=== PATIENT | male | born 1965 | race Caucasian/White ===

== ENCOUNTER → 2017-07-12 | Outpatient (REF) | payer BC | LOC: M LAB REF 14:59 | PROVIDERS: ATTEND Nurse Practitioner Adult Health | DX: R07.89 Other chest pain (principal) ==

== ENCOUNTER → 2018-03-18 | Outpatient (REF) | payer BC ==
[2018-03-20 08:27] LABS: LDL DIRECT 64 mg/dL (0-99)
== END ==
LOC: M LAB REF 18:32
DX: E78.1 Pure hyperglyceridemia (principal)
CPT/HCPCS: 83721

== ENCOUNTER 2018-05-22 07:56 | Day surgery (SDC) | payer BC ==
[2018-05-22] MEDS: NS 1,000 ML IV (08:07)
[2018-05-22] MEDS ORDERED: PROPOFOL 200 MG/20 ML VIAL As Ordered ×3 (08:29→08:47)
[2018-05-22] MEDS ORDERED: LIDOCAINE 2% INJ 100 MG/5 ML SDV (FOR ANES.) As Ordered (08:30)
== END 2018-05-22 09:27 | disposition home or self-care (01) ==
LOC: M OPP 07:56
DX: Z12.11 Encounter for screening for malignant neoplasm of colon (principal); K64.0 First degree hemorrhoids; K57.30 Diverticulosis of large intestine without perforation or abscess without bleeding; R12 Heartburn; K22.8 Other specified diseases of esophagus; I10 Essential (primary) hypertension; E78.5 Hyperlipidemia, unspecified; K21.9 Gastro-esophageal reflux disease without esophagitis; G47.30 Sleep apnea, unspecified; R06.83 Snoring; F17.210 Nicotine dependence, cigarettes, uncomplicated; Z79.82 Long term (current) use of aspirin; Z79.899 Other long term (current) drug therapy
CPT/HCPCS: G0121

== ENCOUNTER → 2019-04-28 | Outpatient (REF) | payer BC ==
[~2019-04-28] MED LIST: ASPI81TA85 PO; ATEN50TA9 PO; BELV10TA PO; FLOM0.4C39 PO; FLUO40CA PO; LOVA1CAP17 PO; OMEP40CA97 PO; POTA1TAB23 PO; ROSU5TAB5 PO; VITA-176 PO; [UNRECOGNIZED DRUG - CODE] EX
== END ==
LOC: M LAB REF 16:31
PROVIDERS: ATTEND Internal Medicine
DX: E78.1 Pure hyperglyceridemia (principal)

== ENCOUNTER → 2020-12-30 | Outpatient (CLI) | payer BC ==
[~2020-12-30] MED LIST changes: -ASPI81TA85 PO; +ASPI81TA86 PO
--- NOTE | 2020-12-30 10:51 | REP ---
INDICATION: NICOTINE DEPENDENCE COMPARISON: None. TECHNIQUE: Axial noncontrast images from the thoracic inlet to the upper abdomen using low-dose lung screening technique (LDCT). FINDINGS: Bilateral lung brown are relatively well aerated. There is a 3 mm nodule in the periphery of the right upper lobe with punctate calcifications suggesting granuloma. There is a 3 mm noncalcified nodule in the periphery of the right lower lobe (series 201; image 47). No further significant consolidation nodule or mass lesion. No pleural effusion. No pneumothorax. Tracheobronchial tree is patent. IMPRESSION: Lung-RADS category 2. Solid 3 mm nodule identified in the right lower lobe. Management recommendations include annual low-dose CT surveillance. <Electronically signed by Marcelino Lopez > 12/30/20 1049
== END ==
LOC: M RAD 10:19
PROVIDERS: ATTEND Internal Medicine
DX: Z12.2 Encounter for screening for malignant neoplasm of respiratory organs (principal); Z87.891 Personal history of nicotine dependence; R91.1 Solitary pulmonary nodule

== ENCOUNTER → 2022-05-03 | Outpatient (REF) | payer BC ==
[~2022-05-03] MED LIST changes: +OMEP40CA4 PO; -OMEP40CA97 PO
[2022-05-05 08:10] LABS: LDL DIRECT 89 mg/dL (0-99)
== END ==
LOC: M LAB REF 16:31
PROVIDERS: ATTEND Internal Medicine
DX: E78.2 Mixed hyperlipidemia (principal); M25.50 Pain in unspecified joint

== ENCOUNTER → 2022-07-18 | Outpatient (CLI) | payer BC | LOC: M RAD 07:49 | PROVIDERS: ATTEND Internal Medicine | DX: R91.8 Other nonspecific abnormal finding of lung field (principal); F17.211 Nicotine dependence, cigarettes, in remission ==

== ENCOUNTER → 2022-09-13 | Outpatient (CLI) | payer BC | LOC: M PLAIMG 12:24 | PROVIDERS: ATTEND Orthopaedic Surgery | DX: M85.611 Other cyst of bone, right shoulder (principal); M25.511 Pain in right shoulder ==

== ENCOUNTER → 2023-07-20 | Outpatient (CLI) | payer BC | LOC: M RAD 06:48 | PROVIDERS: ATTEND Internal Medicine | DX: Z12.2 Encounter for screening for malignant neoplasm of respiratory organs (principal); F17.211 Nicotine dependence, cigarettes, in remission ==

== ENCOUNTER → 2024-08-21 | Outpatient (CLI) | payer BC ==
[~2024-08-21] MED LIST changes: +ROSU5TAB49 PO; -ROSU5TAB5 PO
== END ==
LOC: M RAD 15:47
PROVIDERS: ATTEND Internal Medicine
DX: Z12.2 Encounter for screening for malignant neoplasm of respiratory organs (principal); F17.211 Nicotine dependence, cigarettes, in remission; R91.1 Solitary pulmonary nodule; I70.0 Atherosclerosis of aorta; I25.10 Atherosclerotic heart disease of native coronary artery without angina pectoris; J47.9 Bronchiectasis, uncomplicated